=== PATIENT | female | born 1935 | race Caucasian/White ===

== ENCOUNTER 2017-11-26 17:49 | Observation (INO) | payer MEDICARE, OTHER, SELFPAY ==
[2017-11-26 19:19] VITALS: BMI 23.6
--- NOTE | 2017-11-26 19:37 | P.HP_ITS ---
History of Present Illness Date Patient Seen: 11/26/17 Time Patient Seen: 19:00 Chief complaint: OBSERVATION Narrative: 81-year-old woman living on [address] with her experienced sudden onset tingling in her right arm and weakness in her right leg lasting no more than 3 sec while walking with her daughter. Her daughter told her that she appeared pale and the patient felt weak and had to sit down. She has had occasional tingling in her right arm over the past few months that lasts a matter of seconds and resolves. She presented to the emergency department today where she underwent head CT and CT angiography of the head and neck, showing posterior circulation occlusions, right and left internal carotid artery moderate disease but no evidence of acute stroke. She was neurologically intact at that time and has remained so since transfer to this hospital, due to lack of bed space at the outside hospital. Patient History Medical History Arthritis (Acute) Diabetes (Acute) Endometriosis (Acute) H/O: hysterectomy (Acute) Heart murmur (Acute) Hyperlipidemia (Acute) Osteoarthritis (Acute) Spinal stenosis (Acute) Surgical History History of hip surgery (Acute) History of left knee surgery (Acute) History of tonsillectomy and adenoidectomy (Acute) Family & Social History Family History: Reviewed 11/26/17 by Lele Garcia MD Meds Home Medications Medication Instructions Recorded Confirmed Type [place]-3 1 cap DAILY 11/26/17 11/26/17 History aspirin 81 mg PO DAILY 11/26/17 11/26/17 History cholecalciferol (vitamin D3) 2,000 unit PO DAILY 11/26/17 11/26/17 History coQ10 (ubiquinol) 100 mg PO DAILY 11/26/17 11/26/17 History ezetimibe [Zetia] 10 mg PO DAILY 11/26/17 11/26/17 History fenofibrate nanocrystallized 145 mg PO DAILY 11/26/17 11/26/17 History [Tricor] metformin 1 tab BID 11/26/17 11/26/17 History venlafaxine [Effexor XR] 37.5 mg PO DAILY 11/26/17 11/26/17 History Review of Systems Review of Systems All systems reviewed & are unremarkable except as noted in HPI and below Exam Narrative Exam Narrative: General: Alert, pleasant, with fluent speech, in no apparent distress HEENT: Pupils equal round reactive, extraocular moves intact, normal facial symmetry, mucous membranes pink and moist Neck: Supple, no appreciable bruits Lungs: Clear to auscultation Cardiac: Regular rate and rhythm with grade 1 to 2/6 systolic murmur Abdomen: Soft nontender Extremities: Without edema Neurologic: Alert, oriented, no focal neurologic deficits evident Objective Imaging Chest x-ray: Radiologist's impression: No acute cardiopulmonary disease. CT scan - head: Radiologist's impression: Mild microvascular atherosclerotic change, no hemorrhage or mass or contraindication to TPA administration is found. CT head angiogram: Radiologist's impression: 1. No evidence of acute process involving the arterial structures of the head and neck. 2. Congenitally absent distal left vertebral artery. 3. High-grade right vertebral artery origin stenosis. 4. Left greater than right proximal internal carotid artery stenoses. 5. Right thyroid nodule, which could be further assessed with ultrasound, if clinically indicated. ECG: Reportedly in sinus rhythm Assessment & Plan Plan: Assessment/Plan Narrative: 1. Transient neurologic episode, unlikely to represent a transient ischemic attack. The episode lasted only about 3 sec and was followed by a period of pallor and weakness, most consistent with a vasovagal episode. However, given lateralizing neurologic symptoms, she is admitted be monitored with serial neurologic exams overnight and telemetry monitoring, with further evaluation as indicated. She has significant cerebrovascular disease, however, and statin therapy is recommended. She is agreeable to a trial of rosuvastatin (despite her impression that statins may have caused peripheral neuropathy in the past). She has a very subtle heart murmur, likely not pathologic and certainly not explanatory of her symptoms, and outpatient workup can be pursued if desired. 2. Cerebrovascular disease. Continue aspirin therapy and start rosuvastatin 20 mg nightly. Check lipids. 3. Hypertension. Elevated blood pressure noted on admission. Allow permissive hypertension and follow. Clarify home medications. 4. Hyperlipidemia. Continue routine Zetia and try core and add rosuvastatin. 5. Diabetes mellitus, type 2. Continue routine medication and check hemoglobin A1c. 6. DVT prophylaxis: Low-dose Lovenox. 7. Code status: Full code. 8. Disposition: Admit to observation status. Likely discharge home tomorrow if stable and doing well. Scores ABCD2 Age >= 60 years: yes Initial BP. Either SBP >= 140 or DBP >= 90.: yes Clinical features of the TIA: unilateral weakness Duration of symptoms: < 10 minutes History of diabetes: yes ABCD2 Score: 5 NIHSS Level of Conciousness: Alert, keenly responsive Ask month/age: Answers both questions correctly. Open/close eyes, close hand: Performs both tasks correctly Best gaze horizontal: Normal Visual horton: No visual loss Facial palsy: Normal symetrical movement Left arm drift: No drift for full 10 sec Right arm drift: No drift for full 10 sec Left leg drift: No drift for full 10 sec Right leg drift: No drift for full 10 sec Limb ataxia: Absent Sensory on face/arms/legs: Normal, no sensory loss Best language: No aphasia, normal Dysarthria: Normal Extinction or inattention: No abnormality Total NIH Stroke scale score: 0
--- NOTE | 2017-11-26 20:04 | PC.NURSE ---
patient up to floor at around 1930. patient has two iv sites, right ac and left wrist. 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 patient newly diagnosed with dm type 2 4 months ago. 97% on ra, lung sounds clear, heart rate regular. patient urinated successfully in br, sba. a&ox4. NIH stroke scale score is 0. patient states she has chronic sciatic pain. bowel tones present. 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 patient states she felt numbness to right arm and leg at 1215 today, symptoms have resolved since then. patient oriented to room and call light and to use of bed. ba active. will continue to evaluate and monitor.
[2017-11-26 20:10] VITALS: O2SAT 97
[2017-11-26 20:45] VITALS: BP 156/72; PULSE 72; RESP 18; TEMP 36.9; O2SAT 96
[2017-11-26] MEDS: METFORMIN HCL 500 MG TABLET PO (20:49)
[2017-11-26] MEDS: ROSUVASTATIN 10 MG TABLET 20 MG PO (20:49)
[2017-11-27] VITALS: BP 153/70; PULSE 70; RESP 16; TEMP 36.6; O2SAT 96
[2017-11-27 01:00] VITALS: O2SAT 96
[2017-11-27 04:30] VITALS: BP 149/74; PULSE 70; RESP 18; TEMP 36.8; O2SAT 98
[2017-11-27 05:42] LABS: Add Manual Diff / Slide Review NO; Basophils Percent Auto 0.7 % (0-2); Eosinophils Percent Auto 5.8 % (2-4); Hematocrit 36.5 % (36-46); Hemoglobin 12.2 g/dL (12.0-16.0); Lymphocytes Percent Auto 26.2 % (25-40); Mean Corpuscular HGB Conc 33.3 % (30-36); Mean Corpuscular Hemoglobin 27.3 PG (26-34); Monocytes Percent Auto 9.8 % (3-14); Neutrophils Absolute Auto 2700 /uL (3000-5900); Neutrophils Percent Auto 57.5 % (50-75); Platelet Count 204 X10^3/uL (150-400); Red Blood Cell Count 4.46 X10^6/uL (4.0-5.2); Red Cell Distribution Width 13.8 % (11.6-14.8); White Blood Cell Count 4.8 X10^3/uL (4.5-11.0)
[2017-11-27 05:59] LABS: BUN Creatinine Ratio 33.3 (6-22); Blood Urea Nitrogen 20 mg/dL (7-17); Calcium 9.3 mg/dL (8.4-10.2); Carbon Dioxide 29 mmol/L (22-32); Chloride 105 mmol/L (98-107); Cholesterol 169 mg/dL (140-199); Estimated Glomerular Filt Rate > 60.0 mL/min (>60); Glucose 120 mg/dL (80-110); HDL Cholesterol 49 mg/dL (40-60); HEMOLYSIS < 15 (0-50); LDL Cholesterol Calculated 106 mg/dL (<100); Potassium 4.1 mmol/L (3.4-5.1); Sodium 141 mmol/L (137-145); Triglycerides 68 mg/dL (35-150)
[2017-11-27 08:00] VITALS: BP 150/77; PULSE 70; RESP 18; TEMP 36.5; O2SAT 99
[2017-11-27] MEDS: VENLAFAXINE ER 37.5 MG CAP PO (09:38)
[2017-11-27] MEDS: ASPIRIN EC 325 MG TABLET PO (09:39)
[2017-11-27] MEDS: INSULIN ASPART 100 UNIT/ML INSULN PEN SUBCUT (09:40)
--- NOTE | 2017-11-27 09:51 | P.DS_ITS ---
History of Present Illness Date Patient Seen: 11/27/17 Time Patient Seen: 09:40 Chief complaint: OBSERVATION Narrative: 81-year-old woman living on [place] with her experienced sudden onset tingling in her right arm and weakness in her right leg lasting no more than 3 sec while walking with her daughter. Her daughter told her that she appeared pale and the patient felt weak and had to sit down. She has had occasional tingling in her right arm over the past few months that lasts a matter of seconds and resolves. She presented to the emergency department today where she underwent head CT and CT angiography of the head and neck, showing posterior circulation occlusions, right and left internal carotid artery moderate disease but no evidence of acute stroke. She was neurologically intact at that time and has remained so since transfer to this hospital, due to lack of bed space at the outside hospital. Discharge Providers Date of admission: 11/26/17 17:49 Discharge provider: MIA Heard Summary Discharge Diagnosis: 1. Transient neurologic episode, unlikely TIA 2. Cerebrovascular disease 3. Hypertension 4. Hyperlipidemia 5. Diabetes mellitus type 2 Hospital Course: This is a summary of a 2 day hospitalization for this pleasant 81-year-old patient who presented to an outside hospital for further neurologic symptoms lasting most no more than [address] and CT angiogram of the head and neck showed posterior circulation occlusions, right and left internal carotid artery moderate disease but no evidence of acute stroke. Due to lack of bed space at the outside hospital she was transferred to [facility] under observation. She has had no further signs or symptoms related to her initially seeking help. Her ABCD2 score was 5, and her NIHSS score was 0. She was also started on rosuvastatin 20 mg q.day. Vital signs have all remained stable. She will be discharged today with follow-up with her primary care provider. She will most likely need to be followed up with vascular surgery as well as a neurologist. Status at Discharge Functional status at discharge: independent ambulation Overall status at discharge: patient is back to baseline Time Spent with Patient Less than 30 minutes Exam Vital Signs (past 8 hours): - 11/27/17 04:30 11/27/17 08:00 Temperature 98.2 F 97.7 F Pulse Rate 70 70 Respiratory Rate 18 18 Blood Pressure 149/74 H 150/77 H Pulse Oximetry 98 99 Oxygen Delivery Method Room Air Oxygen Flow Rate 0 Narrative Exam Narrative: Patient is up walking in room in no acute distress. Const General: cooperative, healthy appearing, comfortable, well developed and well groomed Nutritional Appearance: average body habitus Orientation: alert, awake and oriented x3 HENMT Head: normal to inspection, normocephalic and atraumatic Eyes General: appearance normal, both eyes and all related structures Pupils: PERRL and pupil size (2.0) bilaterally Neck Neck: normal visual inspection, trachea midline and supple Other: No JVD or lymphadenopathy, no bruits. Chest Chest: normal inspection of the chest Resp Effort & Inspection: normal respiratory effort and able to speak in complete sentences Auscultation: clear to auscultation bilaterally Cardio Rate: regular rate Rhythm: regular rhythm Heart Sounds: S1 normal and S2 normal Other: No rubs clicks or murmurs appreciated GI Inspection: normal to inspection Palpation: soft Auscultation: normal bowel sounds Other: No masses palpable Other: Unremarkable Skin General: no rashes or lesions noted, dry skin and warm Neuro General: alert, awake and oriented x3 Cranial Nerves: tongue midline Cognition: normal cognition Speech: speech normal Gait: normal gait Motor: muscle tone normal throughout Sensory Exam: no sensory deficits noted Other: NIHSS score 0 Extrem General: normal to inspection, capillary refill normal, no pedal edema and no calf tenderness Psych Appearance: grossly normal Mental Status: mental status grossly normal Speech and Movement: speech and movement normal Mood: congruent mood Affect: normal affect Attitude: cooperative Thought Process: normal Thought Content: normal Judgment: judgment good Objective Labs Result Diagrams: 11/27/17 05:07 11/27/17 05:07 Labs: Laboratory Results - last 24 hr 11/27/17 11/27/17 11/27/17 05:07 05:07 05:07 WBC 4.8 RBC 4.46 Hgb 12.2 Hct 36.5 MCV 82.0 MCH 27.3 MCHC 33.3 RDW 13.8 Plt Count 204 Neut % (Auto) 57.5 Lymph % (Auto) 26.2 Green % (Auto) 9.8 Eos % (Auto) 5.8 H Baso % (Auto) 0.7 Neut # (Auto) 2700 L Sodium 141 Potassium 4.1 Chloride 105 Carbon Dioxide 29 BUN 20 H Creatinine 0.60 Estimated GFR > 60.0 BUN/Creatinine Ratio 33.3 H Glucose 120 H Hemoglobin A1c 6.0 Calcium 9.3 Triglycerides 68 Cholesterol 169 LDL Cholesterol, Calc 106 H HDL Cholesterol 49 Discharge Plan Discharge Plan Patient Disposition: Home, Self-Care Discharge Med Rec/Prescriptions Prescriptions: New rosuvastatin [Crestor] 10 mg Tablet 20 mg PO BEDTIME 30 Days RF: 3 Continue metformin 500 mg tablet 1 tab BID RF: 0 aspirin 81 mg Tablet,Delayed Release (Dr/Ec) 81 mg PO DAILY RF: 0 ezetimibe [Zetia] 10 mg Tablet 10 mg PO DAILY RF: 0 fenofibrate nanocrystallized [Tricor] 145 mg Tablet 145 mg PO DAILY RF: 0 cholecalciferol (vitamin D3) 2,000 unit Capsule 2,000 unit PO DAILY RF: 0 coQ10 (ubiquinol) 100 mg Capsule 100 mg PO DAILY RF: 0 [place]-3 1 gram 1 cap DAILY RF: 0 venlafaxine [Effexor XR] 37.5 mg Capsule,Extended Release 24hr 37.5 mg PO DAILY RF: 0 Follow up/Referrals: Raegan Boogie PA-C [Non-Staff] - 3-5 Days Provider Discharge Instructions Diet: Carb-consistent/Diabetic Activity: As tolerated Oxygen: Room air Visit Report/Discharge Packet Instructions: DI for Syncope in Adults (Fainting), Fainting, Type 2 Diabetes, Diabetic Neuropathy, DI for Diabetes Type 2, Diabetes and Foot Care Visit Report Forms: Stroke Signs & Symptoms Discharge Data Attending Provider: Lele Garcia V Admit Date/Time: 11/26/17 17:49 Quality VTE Deep Vein Thrombosis/Pulmonary Embolism Present on Admission: No
[2017-11-27] MEDS: METFORMIN HCL 500 MG TABLET PO (10:02)
--- NOTE | 2017-11-27 12:09 | CM.DPNOTE ---
DCP: Case received, EMR reviewed and d/c to home order noted by hospitalist MIA Bustamante, this morning, 929. Pt is a 81 year old female who admitted directly to care of hospitalist team last evening after being diverted from another hospital due to no capacity. Payer: Medicare and PCP: noted in H&P. Went to room to check in with pt and she had already left for her home on [address] where she resides with her . < 24 hours LOS. No d/c concerns were identified by the care team members. Clinic followup planned
== END 2017-11-27 11:44 | disposition home or self-care (01) ==
PROVIDERS: Admitting Provider Internal Medicine; Visit Provider Internal Medicine
DX: R53.1 Weakness (principal); R20.2 Paresthesia of skin; I67.9 Cerebrovascular disease, unspecified; E78.5 Hyperlipidemia, unspecified; E11.9 Type 2 diabetes mellitus without complications
CPT/HCPCS: 36415; 80048; 80061; 82962; 83036; 85025; 93005; G0378; G0379; J1650